=== PATIENT | female | born 1955 | race Caucasian/White ===

== ENCOUNTER 2016-05-03 10:12 | Emergency (ER) | payer MEDICARE ==
[2016-05-03 10:31] VITALS: TEMP 98.5; BMI 36.9
[2016-05-03] MEDS ORDERED: DIPHENHYDRAMINE 25 MG CAP PO ONE (11:24)
[2016-05-03] MEDS ORDERED: IBUPROFEN 800 MG TAB PO ONE (11:24)
[2016-05-03] MEDS ORDERED: Fioricet Tablet PO ONE (11:24)
[2016-05-03] MEDS ORDERED: ONDANSETRON HCL 4 MG ODT TAB PO ONE (11:24)
--- NOTE | 2016-05-03 11:50 | EDPRACDOC ---
- General Information Chief Complaint: Headache Stated Complaint: HEADACHE Time Seen by Provider: 05/03/16 11:24 Information Source: Patient Home Medications: Home Medications Butalb/Acetamin/Caffeine [Fioricet] 1 each PO Q4 #10 tab 05/03/16 Fluoxetine HCl [Prozac] 40 mg PO DAILY 05/03/16 Lisinopril [Prinivil] 20 mg PO DAILY 05/03/16 Ondansetron HCl [Zofran] 4 mg PO Q6H PRN #20 tab 05/03/16 Allergies/Adverse Reactions: Allergies Allergy/AdvReac Type Severity Reaction Status Date / Time bee pollen Allergy Anaphylaxis Verified 05/03/16 10:36 * butorphanol [From Stadol] Allergy Agitation Verified 05/03/16 10:31 Fish Containing Products Allergy Difficulty Verified 05/03/16 10:36 Breathing ketorolac [From Toradol] Allergy Diarrhea Verified 05/03/16 10:31 nalbuphine [From Nubain] Allergy Agitation Verified 05/03/16 10:31 strawberry Allergy Difficulty Verified 05/03/16 10:36 Breathing sumatriptan [From Imitrex] Allergy Irregular Verified 05/03/16 10:31 Heartbeat - History of Present Illness Onset: LAST NIGHT HPI: PT PRESENTS TODAY WITH AOC MIGRAINE WINSTON THAT STARTED LAST NIGHT. NO NEW SYMPTOMS. STATES JUST MOVED HERE. DENIES FEVER, DIZZINESS, ENT SYMPTOMS, CP, SHOB, ABD PAIN, VOMITING/DIARRHEA. SOME NAUSEA. NO APPARENT DISTRESS. PT STATES SHE "USUALLY GETS DILAUDID AND PHENERGAN SHOTS AT [facility]". Location: Reports: Generalized Pain Quality: Reports: Moderate, Throbbing, Like Previous Headaches Prior work up: Reports: CT Relevant History of: Reports: Known Headache disorder Associated Signs and Symptoms: Reports: Chronic Headaches, Nausea/Vomiting ED Past Medical History - History Reviewed Yes Nurses notes reviewed and agree except as marked - Patient Medical History Cardiac History: Reports: Hypertension Psychological History: Denies: Depression Systemic History: Denies: Cancer Surgical History: Reports: Hysterectomy - Social Medical History Smoking Status: Never smoker EDM Review of Systems - Review of Systems ROS Negative Except as Marked: Yes All systems reviewed and were negative except as marked Constitutional: No Symptoms Reported Eyes: No Symptoms Reported Ears: No Symptoms Reported Throat: No Symptoms Reported Nose: No Symptoms Reported Respiratory: No Symptoms Reported Cardiovascular: No Symptoms Reported Gastrointestinal: Nausea Neurological: Headache Musculoskeletal: No Symptoms Reported Integumentary: No Symptoms Reported - Physical Exam Constitutional: Alert (Awake), No apparent distress Oriented to: Time, Person, Place Last recorded Vital Signs: Last Vital Signs Temp 98.5 F 05/03/16 10:25 Pulse 74 05/03/16 11:11 Resp 20 05/03/16 11:11 BP 137/74 05/03/16 11:11 Pulse Ox 97 05/03/16 11:11 Oxygen Pulse Oxygen Saturation 97 O2 Device Room Air Oxygen Flow Rate Fraction of Inspired Oxygen ( FIO2) - HEENT Head: Normal Eye Exam: Normal Oropharynx: Normal Tympanic Membrane: Normal ENT EAC: Normal Nose: No Symptoms Reported Neck: Normal, Denies Pain, Midline - Respiratory/Cardiovascular Respiratory: Normal - CTA Cardiovascular: Normal - GI Palpation: Normal Tenderness: Non tender - Musculoskeletal Back: Normal Extremities: Normal - Integumentary Skin: Normal Lymphatics: Normal - Neurologic Cerebellar: Normal Mood Description: Normal Thought: Coherent Perception: Normal - Additional Information [facility] [facility] REVIEWED; PT HAS CURRENT PRESCRIPTION FOR MORPHINE 15 MG TID AT HOME FROM A PROVIDER IN [place]. I INFORMED PT THAT SHE WOULD NOT RECEIVE DILAUDID AND PHENERGAN HERE. Decision Time to Discharge: 11:51 - Departure Disposition: Home Condition: Good Final Diagnosis: Migraine Instructions: Migraine Headache (ED) Education/Counseling Given To: Patient Education/Counseling Given Regarding: Diagnosis, Treatment, Follow Up Referrals: None,No Provider [Primary Care Provider] - One Week Prescriptions: Butalb/Acetamin/Caffeine [Fioricet] 1 each PO Q4 #10 tab Ondansetron HCl [Zofran] 4 mg PO Q6H PRN #20 tab PRN Reason: Nausea/Vomiting Additional Instructions: REST AND PLENTY OF FLUIDS. TAKE PAIN MEDICATION AT HOME PRESCRIBED AND FOLLOW UP WITH PCP IF NEEDED.
[2016-05-03 12:17] VITALS: BP 132/79; PULSE 79
== END 2016-05-03 12:14 | disposition home or self-care (01) ==
LOC: ED 10:12 → EDMC 12:14
DX: G43.909 Migraine, unspecified, not intractable, without status migrainosus (principal)
CPT/HCPCS: 99283; A9270; J3490